=== PATIENT | female | born 1955 | race Caucasian/White ===

== ENCOUNTER → 2019-01-07 | Day surgery (SDC) | payer OTHER ==
--- NOTE | 2019-01-07 09:39 | OP ---
DATE OF OPERATION: 01/07/2019 PREOPERATIVE DIAGNOSIS: Abnormal right mammography. POSTOPERATIVE DIAGNOSIS: Abnormal right mammography. PROCEDURE PERFORMED: Right breast stereotactic needle biopsy with clips. SURGEON: Hien Goncalves MD ANESTHESIA: Local. COMPLICATIONS: None. DISPOSITION: Stable at the end of the procedure. INDICATIONS FOR PROCEDURE: The patient presented for routine screening mammography that noted a cluster of microcalcifications in the inferior right breast. My recommendation was a needle biopsy. The procedure was discussed and all her questions answered. PROCEDURE IN DETAIL: The patient was brought to [facility] in [place], laid prone on the OR table. Using the caudal approach, the calcifications in the inferior right breast were identified. A sterile prep was obtained. A target was chosen. There was a positive stroke margin. Using Betadine and 1% lidocaine, a 9-gauge Suros device was used to take several cores from this this calcification. Specimen radiograph showed cores with calcification. These were handled with the usual calcification protocol. A clip was deployed in the area. Hemostasis was assured with direct pressure. The incision was closed with Steri-Strips. She tolerated the procedure well and left the breast imaging center in good condition. HIEN GONCALVES M.D. [id number]
--- NOTE | 2019-01-08 15:50 | PATH ---
Surgical Pathology Report Patient Name: CADEN ALFARO [facility]. Rec. #: [id number] /Age/Gender: 1955 (Age: 63) / F Account: [id number] Location: [facility] Taken: 01/07/2019 Received: 01/07/2019 Reported: 01/08/2019 Physicians: Hien Desir M.D. Specimen(s) Received A: RIGHT BREAST SPECIMEN WITH CALCIFICATIONS B: RIGHT BREAST SPECIMEN WITHOUT CALCIFICATIONS Clinical History Nonpalpable lesion Mammographic findings: Microcalcification, suspicious Final Diagnosis A. RIGHT BREAST SPECIMEN WITH CALCIFICATIONS, STEREOTACTIC BIOPSY: DUCTAL CARCINOMA IN SITU (DCIS), HIGH NUCLEAR GRADE, WITH ASSOCIATED NECROSIS AND MICROCALCIFICATIONS. Results of Estrogen Receptor (ER) and Progesterone Receptor (MI) studies performed on block "A1" at [facility] are as follows: ER (clone [id number] mouse monoclonal antibody by [employer]): 98% nuclear staining with strong and moderate intensity (Positive). MI (clone16 mouse monoclonal antibody by [employer]): 90% nuclear staining with strong and moderate intensity (Positive). B. RIGHT BREAST THE SPECIMEN WITHOUT CALCIFICATIONS, STEREOTACTIC BIOPSY: DUCTAL CARCINOMA IN SITU (DCIS), HIGH NUCLEAR GRADE, WITH ASSOCIATED NECROSIS. This case was discussed with Dr. Desir on January 08, 2019. Electronically Signed Dorie Rubin M.D. Gross Description A. Received in formalin labeled "right breast with calcifications," is a 2.3 x 1.8 x 0.3 cm aggregate of multiple estes-yellow, irregular to cylindrical portions of fibroadipose tissue. The formalin is filtered and the specimen is entirely submitted in one cassette. B. Received in formalin labeled "right breast without calcifications," and a 2.4 x 2.0 x 0.3 cm aggregate of multiple estes-yellow, irregular to cylindrical portions of fibroadipose tissue. The formalin is filtered and the specimen is entirely submitted in one cassette. Time to formalin fixation: 5 minutes Total formalin fixation time: Approximately 9 hours. 01/07/201901/07/2019
== END | disposition home or self-care (01) ==
LOC: FMAMMOTONE 12-31 10:24
PROVIDERS: ATTEND Surgery
PROC: 0HBT3ZX Excision of Right Breast, Percutaneous Approach, Diagnostic (ICD-10-PCS; principal; 2019-01-07)
DX: D05.11 Intraductal carcinoma in situ of right breast (principal); N64.89 Other specified disorders of breast; R92.8 Other abnormal and inconclusive findings on diagnostic imaging of breast
CPT/HCPCS: 19081; 87899; 88305-TC; 88342-TC; A4648